=== PATIENT | male | born 1980 | race Caucasian/White ===

== ENCOUNTER 2021-07-04 04:20 | Inpatient (IN) | payer BC ==
[~2021-07-04] VITALS: Ht 167.6 cm; Wt 75.4 kg
[2021-07-04] MEDS ORDERED: ONDANSETRON HCL 4MG/2ML INJ IV ONE (04:45)
[2021-07-04] MEDS ORDERED: SODIUM CHLORIDE 0.9% 1,000 ML IV ONE ×2 (04:45→07:45)
[2021-07-04 05:15] LABS: CHLORIDE 109 mEq/L (98-107)
[2021-07-04 05:18] LABS: BASOPHILS % 0.8 % (0.0-2.0); EOSINOPHILS % 1.4 % (0.0-5.0); HEMOGLOBIN. 14.5 g/dL (14.0-18.0); LYMPHOCYTES % 31.3 % (20.0-50.0); MEAN CORPUSCULAR HEMOGLOBIN 30.5 pg (28.0-32.0); MEAN CORPUSCULAR VOLUME 90.8 fL (80.0-94.0); MEAN PLATELET VOLUME 7.7 fl (7.4-10.4); MONOCYTES % 6.5 % (2.0-8.0); PLATELET 286 x1000/uL (130-400); RED BLOOD CELL COUNT 4.74 mill/uL (4.7-6.1); RED CELL DISTRIBUTION WIDTH 13.4 % (11.6-14.6)
[2021-07-04] MEDS ORDERED: MECLIZINE 25MG TABLET PO ONE (05:45)
[2021-07-04] MEDS ORDERED: DIPHENHYDRAMINE 50MG/ML VIAL IV PRN (11:00)
[2021-07-04] MEDS ORDERED: MECLIZINE 25MG TABLET PO PRN (11:00)
[2021-07-04] MEDS ORDERED: ONDANSETRON HCL 4MG/2ML INJ IV PRN (11:00)
[2021-07-04] MEDS ORDERED: MAGNESIUM/ALUMINUM HYDROXIDE/SIMETHICONE 30ML UDC PO PRN (11:00)
[2021-07-04] MEDS ORDERED: LORAZEPAM 0.5MG TABLET PO PRN (11:00)
[2021-07-04] MEDS ORDERED: POTASSIUM CHLORIDE 20MEQ TABLET SR PO NR (11:00)
[2021-07-04] MEDS ORDERED: ACETAMINOPHEN 650MG SUPP PR PRN (11:00)
[2021-07-04] MEDS ORDERED: ACETAMINOPHEN 325MG TABLET PO PRN (11:00)
[2021-07-04] MEDS ORDERED: DOCUSATE SODIUM 100MG CAPSULE PO PRN (11:00)
[2021-07-04] MEDS ORDERED: NA PHOS,M-B/NA PHOS,DI-BA ENEMA 118ML PR PRN (11:00)
[2021-07-04] MEDS ORDERED: IPRATROPIUM/ALBUTEROL 0.5-3(2.5)MG/3ML NEB NEB PRN (11:00)
[2021-07-04] MEDS ORDERED: GUAIFENESIN 200MG/10ML SUGAR FREE UDC PO PRN (11:00)
[2021-07-04] MEDS ORDERED: NALOXONE HCL 0.4MG/ML VIAL IV PRN (11:15)
[2021-07-04] MEDS: ENOXAPARIN 40MG/0.4ML SYR SUBCUT SCH (12:27)
[2021-07-04] MEDS: MECLIZINE 25MG TABLET PO SCH ×2 (15:30→22:04)
[2021-07-04 15:31] LABS: PROTHROMBIN TIME 10.3 sec (9.6-11.0)
[2021-07-04 22:00] VITALS: BP 110/81
[2021-07-04] MEDS: HYDROCODONE/ACETAMINOPHEN 5/325MG TABLET PO PRN (22:03)
[2021-07-04] MEDS: FAMOTIDINE 20MG TABLET PO SCH (22:03)
[2021-07-05] VITALS (7 sets, daily range): BP systolic 93–123; BP diastolic 57–81
[2021-07-05] MEDS: MECLIZINE 25MG TABLET PO SCH ×3 (05:39→21:29)
[2021-07-05 06:23] LABS: BASOPHILS % 0.8 % (0.0-2.0); EOSINOPHILS % 1.6 % (0.0-5.0); LYMPHOCYTES % 38.3 % (20.0-50.0); MEAN CORPUSCULAR HEMOGLOBIN 30.5 pg (28.0-32.0); MEAN CORPUSCULAR VOLUME 91.4 fL (80.0-94.0); MONOCYTES % 6.5 % (2.0-8.0); NEUTROPHILS % 52.8 % (40.0-76.0); PLATELET 263 x1000/uL (130-400); RED BLOOD CELL COUNT 4.59 mill/uL (4.7-6.1); RED CELL DISTRIBUTION WIDTH 13.4 % (11.6-14.6)
[2021-07-05 06:47] LABS: CHLORIDE 109 mEq/L (98-107)
[2021-07-05 07:04] LABS: LDL CHOLESTEROL 70 mg/dL (5-100)
[2021-07-05 07:06] LABS: HDL CHOLESTEROL 42 mg/dL (40-59); T4 FREE 1.06 ng/dL (0.76-1.46)
[2021-07-05] MEDS: HYDROCODONE/ACETAMINOPHEN 5/325MG TABLET PO PRN ×3 (07:51→21:36)
[2021-07-05] MEDS: ENOXAPARIN 40MG/0.4ML SYR SUBCUT SCH (12:28)
[2021-07-05] MEDS ORDERED: ACETAMINOPHEN 325MG TABLET PO NR (14:00)
[2021-07-05] MEDS ORDERED: ACETAMINOPHEN 325MG TABLET PO PRN (14:00)
[2021-07-05] MEDS: FAMOTIDINE 20MG TABLET PO SCH (21:29)
[2021-07-06] VITALS: BP 109/70
[2021-07-06 04:00] VITALS: BP_SYST 112; BP_SYST 122; BP_SYST 126; BP_DIAS 76; BP_DIAS 77; BP_DIAS 78
[2021-07-06] MEDS: HYDROCODONE/ACETAMINOPHEN 5/325MG TABLET PO PRN ×2 (04:15→08:45)
[2021-07-06] MEDS: MECLIZINE 25MG TABLET PO SCH ×3 (05:57→21:34)
[2021-07-06 08:00] VITALS: BP 122/80
[2021-07-06 09:26] LABS: BASOPHILS % 0.9 % (0.0-2.0); HEMOGLOBIN. 15.2 g/dL (14.0-18.0); LYMPHOCYTES % 33.4 % (20.0-50.0); MEAN CORPUSCULAR HEMOGLOBIN 31.4 pg (28.0-32.0); MEAN CORPUSCULAR VOLUME 91.3 fL (80.0-94.0); MEAN PLATELET VOLUME 7.9 fl (7.4-10.4); MONOCYTES % 5.2 % (2.0-8.0); NEUTROPHILS % 58.5 % (40.0-76.0); PLATELET 259 x1000/uL (130-400); RED BLOOD CELL COUNT 4.82 mill/uL (4.7-6.1); RED CELL DISTRIBUTION WIDTH 13.3 % (11.6-14.6)
[2021-07-06 10:02] LABS: CHLORIDE 105 mEq/L (98-107)
[2021-07-06 12:00] VITALS: BP 104/74
[2021-07-06] MEDS: ENOXAPARIN 40MG/0.4ML SYR SUBCUT SCH (12:56)
[2021-07-06] MEDS ORDERED: MORPHINE SULFATE 2 MG/ML CPJ (NOT FOR IM USE) IV PRN (13:45)
[2021-07-06] MEDS ORDERED: HYDR-4001 MT (14:30)
[2021-07-06] MEDS ORDERED: MECL-159 MT (14:30)
[2021-07-06 16:30] VITALS: BP 126/79
[2021-07-06 20:00] VITALS: BP 124/90
[2021-07-06] MEDS ORDERED: IOHEXOL-350 100 ML BOTTLE ONE (21:01)
[2021-07-06] MEDS: FAMOTIDINE 20MG TABLET PO SCH (21:34)
[2021-07-07] VITALS: BP 102/66
[2021-07-07 04:00] VITALS: BP 98/66
[2021-07-07] MEDS: MECLIZINE 25MG TABLET PO SCH (06:27)
[2021-07-07 08:00] VITALS: BP 112/67
[2021-07-07] MEDS: ENOXAPARIN 40MG/0.4ML SYR SUBCUT SCH (11:49)
[2021-07-07 12:00] VITALS: BP 124/73
[2021-07-07 14:31] VITALS: BP 124/73
== END 2021-07-07 14:50 | disposition home or self-care (01) | DRG 74 ==
LOC: ER 05:05 → SUPCPDRO 10:49 → EDBEDREQ 10:53 → ENRESERV 19:09 → 7EST 20:57
PROVIDERS: ADMIT Internal Medicine; ATTEND Internal Medicine
DX: G90.8 Other disorders of autonomic nervous system (principal); E86.0 Dehydration; Z20.822 Contact with and (suspected) exposure to COVID-19; E87.6 Hypokalemia; R00.1 Bradycardia, unspecified; Z82.3 Family history of stroke
CPT/HCPCS: 36415; 70496; 70498; 70551; 80048; 80053; 80061; 83036; 83735; 84439; 84443; 84484; 85025; 87426; 93005; 93306; 93880; 93970; 97161; 99285; J1650; J2405; J7030; J8597; Q9967

== ENCOUNTER 2024-08-22 09:23 | Emergency (ER) | payer BC, OTHER ==
[~2024-08-22] VITALS: Ht 154.9 cm; Wt 74.8 kg
[~2024-08-22 09:23] MED LIST: HYDR-4001 MT; MECL-299 MT
[2024-08-22 09:25] VITALS: BP 118/70; PULSE 76; RESP 18; TEMP 99.5; O2SAT 99
[2024-08-22] MEDS: ONDANSETRON 4MG ODT PO STA (10:25)
[2024-08-22] MEDS: KETOROLAC 30MG/ML VIAL IM ONE (10:30)
[2024-08-22 10:52] LABS: HEMATOCRIT. 45.2 % (42.0-52.0); HEMOGLOBIN. 15.1 g/dL (14.0-18.0); MEAN CORPUSCULAR HEMOGLOBIN 30.9 pg (28.0-32.0); MEAN CORPUSCULAR HGB CONC 33.3 g/dL (31.0-37.0); MEAN CORPUSCULAR VOLUME 92.6 fL (80.0-94.0); MEAN PLATELET VOLUME 7.7 fl (7.4-10.4); PLATELET 247 x1000/uL (130-400); RED BLOOD CELL COUNT 4.88 mill/uL (4.7-6.1); RED CELL DISTRIBUTION WIDTH 13.7 % (11.6-14.6); WHITE BLOOD COUNT 8.2 x1000/uL (4.5-11.0)
[2024-08-22 10:53] LABS: DIFFERENTIAL COMMENT 1
[2024-08-22 10:54] LABS: CHLORIDE 106 mEq/L (98-107); POTASSIUM 4.3 mEq/L (3.5-5.1); SODIUM 137 mEq/L (136-145)
[2024-08-22 10:55] LABS: CALCIUM 9.9 mg/dL (8.7-10.4); CARBON DIOXIDE 24 mEq/L (21-32)
[2024-08-22 11:00] LABS: CREATININE 0.8 mg/dL (0.6-1.3); GLUCOSE 128 mg/dL (70-105); UREA NITROGEN BLOOD 10 mg/dL (9-23)
[2024-08-22 11:02] LABS: ALANINE AMINOTRANSFERASE 21 IU/L (10-49); ALBUMIN 4.6 g/dL (3.2-4.8); ASPARTATE AMINOTRANSFERASE 23 IU/L (<34); BILIRUBIN DIRECT 0.2 mg/dL (<=3.0); BILIRUBIN TOTAL 0.6 mg/dL (0.1-1.0)
[2024-08-22 11:03] LABS: PROTEIN TOTAL 7.2 g/dL (6.0-8.3)
[2024-08-22 11:05] LABS: INR 0.9; PROTHROMBIN TIME 10.4 sec (9.6-11.0)
[2024-08-22] MEDS ORDERED: IBUP-2030 MT (12:05)
[2024-08-22] MEDS ORDERED: ONDA4TAB50 MT (12:05)
[2024-08-22 12:53] LABS: PLATELET ESTIMATE NORMAL
[2024-08-22] MEDS: FAMOTIDINE 20MG TABLET PO ONE (12:55)
== END 2024-08-22 12:56 | disposition home or self-care (01) ==
LOC: ER 09:23
DX: B34.9 Viral infection, unspecified (principal); R11.2 Nausea with vomiting, unspecified; F32.9 Major depressive disorder, single episode, unspecified
CPT/HCPCS: 36415; 80048; 80076; 85025; 99283